=== PATIENT | male | born 1955 | race Two or more races ===

== ENCOUNTER → 2017-10-18 | Day surgery (SDC) | payer MEDICAID ==
[2017-10-12 11:26] LABS: Basophils # (auto) 0.1 uL; Basophils % (auto) 1.2 % (0.0-2.0); Eosinophils # (auto) 0.4 uL; Eosinophils % (auto) 5.4 % (0.0-7.0); Hemoglobin 13.7 g/dL (13.5-17.5); Lymphocytes # (auto) 2.1 uL; Lymphocytes % (auto) 26.5 % (10.0-50.0); Mean Corpuscular Hemoglobin 27.2 pg (28.0-32.0); Mean Corpuscular Hgb Conc. 33.4 g/dL (32.0-36.0); Mean Corpuscular Volume 81.4 fL (80.0-100.0); Monocytes # (auto) 0.6 uL; Monocytes % (auto) 8.1 % (0.0-12.0); Neutrophils # (auto) 4.6 uL; Neutrophils % (auto) 58.8 % (37.0-80.0); Nucleated Red Blood Cells % 0.3 %; Platelet Count (auto) 205 10^3/uL (140-450); Red Blood Cells 5.03 10^6/uL (4.5-5.90); Red Cell Distribution Width 13.6 % (11.8-14.3); White Blood Cell 7.9 10^3/uL (4.4-10.8)
[2017-10-12 11:33] LABS: Urine Bacteria NONE SEEN /hpf (None Seen); Urine Blood Negative /uL (Negative); Urine Mucus FEW (None Seen); Urine Specific Gravity 1.014 (1.001-1.035); Urine WBC 1 /hpf (0 - 3)
[2017-10-12 11:36] LABS: INR 1.11 (0.9-1.15); Partial Thromboplastin Time 26.8 sec (23.78-33.04); Prothrombin Time 11.8 sec (9.27-12.13)
[2017-10-12 12:06] LABS: Albumin 3.7 g/dL (3.4-5.0); BUN/Creatinine Ratio 19.1; Bilirubin, Total 0.3 mg/dL (0.2-1.0); Calcium 8.7 mg/dL (8.5-10.1); Potassium 4.1 mmol/L (3.5-5.1)
[~2017-10-18] VITALS: Ht 165.1 cm; Wt 73.5 kg
[~2017-10-18] MED LIST: CLINDAMYCIN 600MG IV 50 ML IV ONE; CLOP75TA28 PO; DEXAMETHASONE SOD PHOS 10MG/1ML VIAL INJ ONE; FENO1TAB42 PO; KETOROLAC TROMETH 30 MG/ML 1ML VIAL ONE; LEVO25TA6 PO; MIDAZOLAM HCL 1MG/1ML-2 ML VIAL ONE; PROPOFOL 10 MG/ML 20 ML IV ONE; RANI150C11 PO; SIMV-8 PO; fentaNYL CITRATE 100 MCG/2 ML VL ONE
[2017-10-18 10:14] VITALS: BP 157/73
== END | disposition home or self-care (01) ==
LOC: SUR 06:30
PROVIDERS: ATTEND Podiatrist Foot & Ankle Surgery
DX: M72.2 Plantar fascial fibromatosis (principal); E03.9 Hypothyroidism, unspecified; I10 Essential (primary) hypertension; I25.10 Atherosclerotic heart disease of native coronary artery without angina pectoris; Z79.899 Other long term (current) drug therapy
CPT/HCPCS: 28060; J3010; Q4139; 36415; 80053; 81001; 85025; 85610; 85730; J1100; J1885; J2250; J2704; J3490

== ENCOUNTER 2018-02-07 07:32 | Day surgery (SDC) | payer MEDICAID ==
[2018-02-06 14:34] LABS: Basophils # (auto) 0.1 uL; Basophils % (auto) 0.9 % (0.0-2.0); Eosinophils # (auto) 0.4 uL; Eosinophils % (auto) 4.5 % (0.0-7.0); Hematocrit 42.8 % (41.0-53.0); Lymphocytes % (auto) 26.1 % (10.0-50.0); Mean Corpuscular Hemoglobin 27.3 pg (28.0-32.0); Mean Corpuscular Hgb Conc. 32.8 g/dL (32.0-36.0); Mean Corpuscular Volume 83.3 fL (80.0-100.0); Monocytes # (auto) 0.6 uL; Monocytes % (auto) 7.7 % (0.0-12.0); Neutrophils # (auto) 4.7 uL; Neutrophils % (auto) 60.8 % (37.0-80.0); Nucleated Red Blood Cells % 0.1 %; Platelet Count (auto) 203 10^3/uL (140-450); Red Blood Cells 5.14 10^6/uL (4.5-5.90); Red Cell Distribution Width 13.6 % (11.8-14.3); White Blood Cell 7.8 10^3/uL (4.4-10.8)
[2018-02-06 14:48] LABS: INR 1.13 (0.9-1.15); Partial Thromboplastin Time 26.5 sec (23.78-33.04)
[2018-02-06 15:05] LABS: Albumin 3.8 g/dL (3.4-5.0); Calcium 8.9 mg/dL (8.5-10.1); Potassium 4.2 mmol/L (3.5-5.1)
[2018-02-06 15:08] LABS: BUN/Creatinine Ratio 21.8; Bilirubin, Total 0.5 mg/dL (0.2-1.0); Total Protein 7.6 g/dL (6.4-8.2)
[~2018-02-07] VITALS: Ht 167.6 cm; Wt 74.4 kg
[~2018-02-07 07:32] MED LIST changes: -CLINDAMYCIN 600MG IV 50 ML IV ONE; -DEXAMETHASONE SOD PHOS 10MG/1ML VIAL INJ ONE; -KETOROLAC TROMETH 30 MG/ML 1ML VIAL ONE; -MIDAZOLAM HCL 1MG/1ML-2 ML VIAL ONE; -PROPOFOL 10 MG/ML 20 ML IV ONE; -fentaNYL CITRATE 100 MCG/2 ML VL ONE
[2018-02-07] MEDS ORDERED: CLINDAMYCIN 600MG IV 50 ML IV ONE (09:29)
[2018-02-07] MEDS ORDERED: BUPIVACAINE 0.75% INJ 10ML MPV SDV IJ ONE (12:37)
[2018-02-07] MEDS ORDERED: NEOMYCIN-BACITRACIN-POLYM 15GM TOP OINT TOP ONE (12:37)
[2018-02-07] MEDS ORDERED: fentaNYL CITRATE 100 MCG/2 ML VL ONE (12:43)
[2018-02-07] MEDS ORDERED: MIDAZOLAM HCL 1MG/1ML-2 ML VIAL ONE (12:43)
[2018-02-07] MEDS ORDERED: PROPOFOL 10 MG/ML 20 ML IV ONE (12:43)
[2018-02-07] MEDS ORDERED: ONDANSETRON HCL 4 MG/2 ML VIAL IV ONE (13:15)
[2018-02-07] MEDS ORDERED: ePHEDrine SULFATE 50 MG/ML AMP IV PRN (13:15)
[2018-02-07] MEDS ORDERED: hydrALAZINE HCL 20 MG/ML VL IV PRN (13:15)
[2018-02-07 13:57] VITALS: BP 116/69
[2018-02-07] MEDS ORDERED: fentaNYL CITRATE 100 MCG/2 ML VL IV ONE (14:00)
== END 2018-02-07 14:12 | disposition home or self-care (01) ==
LOC: SUR 07:32
PROVIDERS: ATTEND Podiatrist Foot & Ankle Surgery
DX: D18.01 Hemangioma of skin and subcutaneous tissue (principal); L91.8 Other hypertrophic disorders of the skin; E03.9 Hypothyroidism, unspecified; I73.9 Peripheral vascular disease, unspecified; Z98.890 Other specified postprocedural states; Z88.0 Allergy status to penicillin; Z79.899 Other long term (current) drug therapy
CPT/HCPCS: 11200; 28043; J3010; L3260; Q4137; 36415; 80053; 85025; 85610; 85730; 88302; J2250; J2704; J3490